=== PATIENT | female | born 2000 | race Caucasian/White ===

== ENCOUNTER 2020-12-15 07:49 | Emergency (ER) | payer MEDICAID ==
[~2020-12-15] VITALS: Ht 157.5 cm; Wt 94.4 kg
[2020-12-15 08:23] LABS: URINE HCG NEGATIVE (NEG)
[2020-12-15 08:52] LABS: CLARITY,URINE CLEAR (Clear); COLOR,URINE STRAW (Yellow); GLUCOSE, URINE NEGATIVE (Neg); KETONES,URINE NEGATIVE (Neg); LEUKOCYTE ESTERASE ,URINE NEGATIVE (Neg); NITRITES, URINE NEGATIVE (Neg); OCCULT BLOOD,URINE NEGATIVE (Neg); PH,URINE 5.5 (4.8-8.0); PROTEIN,URINE NEGATIVE (Neg); UROBILINOGEN,URINE 0.2 E.U/dL (0.2-1.0)
[2020-12-15 08:53] LABS: UA COLLECTION TYPE CLN CATCH MIDSTREAM
[2020-12-15 09:46] VITALS: BP 119/84
== END 2020-12-15 09:47 | disposition home or self-care (01) ==
LOC: ER 07:50
DX: R30.0 Dysuria (principal); R30.9 Painful micturition, unspecified; F15.90 Other stimulant use, unspecified, uncomplicated
CPT/HCPCS: 81003; 81025; 99283